=== PATIENT | male | born 1985 | race Hispanic/Latino ===

== ENCOUNTER 2018-01-20 17:38 | Emergency (ER) | payer OTHER ==
[~2018-01-20] VITALS: Ht 167.6 cm; Wt 72.6 kg
--- NOTE | 2018-01-20 18:10 | ED GI/GU/ABDOMINAL COMPLAINT ---
See Addendum History of Present Illness General Chief Complaint: Male Genitourinary Problems Stated Complaint: LUMP IN GROIN AREA Source: patient, old records Exam Limitations: no limitations Vital Signs & Intake/Output Vital Signs & Intake/Output Vital Signs Date Time Temp Pulse Resp B/P B/P Pulse O2 O2 Flow FiO2 Mean Ox Delivery Rate 01/20 2100 90 16 113/69 96 Room Air 01/20 1752 Room Air 01/20 1744 97.4 110 18 151/81 98 Room Air Allergies Coded Allergies: No Known Allergies (01/20/18) Triage Note: PT TO ER C/C "LUMP" TO RLQ X 5 DAYS, GETTING WORSE. PT STATES PENIS IS NOW SWOLLEN. DENIES URINARY DIFFICULTIES. DENIES INJURY OR TRAUMA. HAS HAD SIMILAR "LUMP" TO LLQ IN PAST Triage Nurses Notes Reviewed? yes Onset: Last week Duration: day(s):, constant, continues in ED, getting worse Timing: recent history Quality/Severity: aching, severe, throbbing Location: suprapubic Radiation: no radiation Activities at Onset: none Prior Abdominal Problems: none Sexually Active: Yes Last Time You Were Sexual: less than 2 months ago Sexual Orientation: Heterosexual Use of Protection: No Modifying Factors: Worsens With: movement, palpation. Associated Symptoms: lumps, rash HPI: 5 days prior to admission patient noted suprapubic red lump like an ingrown hair expanding in size with increasing pain tender inguinal lymph nodes and swelling to the penis with redness. He also noted a painful lesion at the ventral base of the penis. He denies fever chills nausea vomiting diarrhea abdominal pain chest pain shortness of breath dysuria bleeding penile discharge previous episodes. (Harvey López MD) Reconcile Medications Cephalexin (Keflex) 500 MG CAPSULE 1 CAP PO 4 TIMES/DAY INFECTION Sulfamethoxazole/Trimethoprim (Bactrim Ds Tablet) 800 MG-160 MG TABLET 1 TAB PO BID INFECION Valacyclovir HCl (Valtrex) 1,000 MG TABLET 1 TAB PO TID genital ulcer (Jack HARTMANN,Rajat Matthews) Past History Travel History Traveled to [place] past 21 day No Medical History Any Pertinent Medical History? none Surgical History Surgical History: non-contributory Psychosocial History What is your primary language Macedonian Tobacco Use: Current Daily Use Daily Tobacco Use Amount/Type: => 5 Cigarettes daily Family History Hx Contributory? No (Harvey López MD) Review of Systems Review of Systems Constitutional: Reports: no symptoms. EENTM: Reports: no symptoms. Respiratory: Reports: no symptoms. Cardiovascular: Reports: no symptoms. GI: Reports: no symptoms. Genitourinary: Reports: see HPI, pain. Musculoskeletal: Reports: no symptoms. Skin: Reports: see HPI, erythema, lumps, rash. Neurological/Psychological: Reports: no symptoms. Hematologic/Endocrine: Reports: no symptoms. Immunologic/Allergic: Reports: no symptoms. All Other Systems: Reviewed and Negative (Harvey López MD) Physical Exam Physical Exam General Appearance: well developed/nourished, alert, awake, anxious, moderate distress Head: atraumatic, normal appearance Eyes: Bilateral: normal appearance, PERRL, EOMI, normal inspection. Ears, Nose, Throat, Mouth: hearing grossly normal, moist mucous membrane Neck: normal inspection, supple, full range of motion, normal alignment Respiratory: normal breath sounds, chest non-tender, no respiratory distress, quiet respiration, lungs clear Cardiovascular: regular rate/rhythm, normal peripheral pulses, norml femoral pulses equa Peripheral Pulses: 4+ carotid (R), 4+ carotid (L) Gastrointestinal: normal bowel sounds, soft, non-tender, no organomegaly Male Genitals: erythema (penile with edema), inguinal tenderness, lesions ( ventral chancre tender) Back: normal inspection, normal range of motion, no vertebral tenderness Extremities: normal range of motion, no ligament instability Neurologic/Psych: no motor/sensory deficits, awake, alert, oriented x 3, normal gait, normal mood/affect, director of clinical services II-XII nml as tested Skin: intact, rash Core Measures ACS in differential dx? No Sepsis Present: No Sepsis Focused Exam Completed? No (Harvey López MD) Progress Differential Diagnosis: chancroid, syphilis, herpes genitalia, follicular abscess Plan of Care: Orders Procedure Date/time Status CHLAMYDIA-GC DNA PROBE 01/20 1754 Active VDRL 01/20 1754 Active URINALYSIS 01/20 1754 Complete COMPREHENSIVE METABOLIC PANEL 01/20 1754 Complete CBC WITHOUT DIFFERENTIAL 01/20 1754 Complete Laboratory Tests 01/20/18 1900: Urine Color YEL, Urine Clarity CLEAR, Urine pH 7.0, Ur Specific [place] 1.010, Urine Protein NEG, Urine Ketones NEG, Urine Nitrite NEG, Urine Bilirubin NEG, Urine Urobilinogen 0.2, Ur Leukocyte Esterase NEG, Ur Microscopic EXAM NOT REQUIRED, Urine Hemoglobin NEG, Urine Glucose NEG 01/20/18 1805: Anion Gap 13, Estimated GFR > 60, BUN/Creatinine Ratio 16.3, Glucose 89, Calcium 10.0, Total Bilirubin 0.5, AST 39, ALT 48, Alkaline Phosphatase 91, Total Protein 7.7, Albumin 4.6, Globulin 3.1, Albumin/Globulin Ratio 1.5, CBC w Diff MAN DIFF ORDERED, RBC 5.21, MCV 90.0, MCH 30.8, MCHC 34.2, RDW 13.5, MPV 9.0, Gran % 79.9 H, Lymphocytes % 12.0 L, Monocytes % 7.5, Eosinophils % 0.3, Basophils % 0.3, Absolute Granulocytes 13.5 H, Segmented Neutrophils 79 H, Band Neutrophils 1, Absolute Lymphocytes 2.0, Lymphocytes 13 L, Monocytes 6, Absolute Monocytes 1.3 H, Eosinophils 1, Absolute Eosinophils 0.1, Absolute Basophils 0.1, Platelet Estimate VERIFIED BY SMEAR, Normocytic RBCs VERIFIED, Normochromic RBCs VERIFIED, Fld Total RBCs Counted 100, RPR Titer/FTA Pending Microbiology 01/20 1900 URINE ROUT: GC DNA Probe - RECD 01/20 1900 URINE ROUT: Chlamydia DNA Probe (MORRIS) - RECD Diagnostic Imaging: Viewed by Me: CT Scan. Discussed w/RAD: CT Scan. Initial ED EKG: none Hand-Off Endorsed To: Rajat Santiago MD Endorsed Time: 1899 Pending: CT, labs (Maribel HARTMANN,Harvey) Diagnostic Imaging: Viewed by Me: CT Scan. Discussed w/RAD: CT Scan. Radiology Impression: PATIENT: NANCY MEHTA PRESENT AGE: 32 PATIENT ACCOUNT NO: [id number] : 87 LOCATION: [facility] ORDERING PHYSICIAN: Harvey López MD SERVICE DATE: 01/20/18 EXAM TYPE: CAT - CT ABD & PELVIS W IV CONTRAST EXAMINATION: CT ABDOMEN AND PELVIS WITH CONTRAST CLINICAL INFORMATION: Pubic abscess. COMPARISON: None TECHNIQUE: Multidetector volumetric imaging was performed of the abdomen and pelvis following IV administration of 95 mL of Optiray 320 intravenous contrast. Sagittal and coronal reformatted images were obtained on the technologist's workstation. DLP: 441.79 mGy-cm FINDINGS: LUNG BASES: Limited images of lower thorax demonstrate a 5 mm noncalcified right lower lobe pulmonary nodule as seen on axial image 2-26. LIVER, GALLBLADDER, AND BILIARY TREE: The liver is normal in size, shape, and attenuation. No focal hepatic lesion or biliary ductal dilatation is present. The gallbladder is unremarkable with no evidence of radiopaque gallstones, gallbladder wall thickening, or obvious pericholecystic inflammatory changes. PANCREAS: Unremarkable SPLEEN: Unremarkable ADRENAL GLANDS: Unremarkable KIDNEYS AND URETERS: The kidneys are normal in size, shape, and attenuation. No hydronephrosis, hydroureter, or calculi seen. No perinephric stranding. BLADDER: Unremarkable GASTROINTESTINAL TRACT: The small and large bowel are unremarkable. The appendix is visualized. The lumen of the appendix is normal in diameter and contains appendicolith. There is no CT evidence of acute appendicitis. ABDOMINAL WALL: There is soft tissue stranding in the pubis with extension to the shaft of penis. There is a 3.5 x 2.3 x 2.5 cm, (AP, CC and transverse dimensions) soft tissue density adjacent to the dorsal aspect of shaft of penis. There is no definite fluid collection or soft tissue air. This in the proper clinical setting can represent cellulitis. The soft tissue edema extends along the shaft of penis. Small bilateral hydroceles are also noted. LYMPH NODES: There are enlarged bilateral inguinal and left external iliac chain lymph nodes. Smaller left para-aortic lymph nodes are also seen. VASCULAR: Unremarkable PELVIC VISCERA: The prostate and seminal vesicles are unremarkable. OSSEOUS STRUCTURES: Unremarkable IMPRESSION: Soft tissue stranding and soft tissue density in the anterior pubis, close to the dorsal aspect of shaft of penis. The findings can represent cellulitis. No definite fluid collection or soft tissue air noted. The edematous changes extend along the shaft of penis. There are bilateral inguinal and left external iliac chain adenopathy. Smaller lymph nodes are also seen in the left para-aortic region. A 5 mm noncalcified pulmonary nodule in the right lower lobe. Followup based on Fleischner criteria is suggested. Various management parameters for solitary pulmonary nodules are in the literature. According to the Fleischner Society, recommendations for pulmonary nodules are as follows: Nodule size < or = to 4 mm in LOW RISK PATIENTS: No followup needed. Nodule size < or = to 4 mm in HIGH RISK PATIENTS: Followup CT at 12 months; if unchanged, no further followup. Nodule size > 4-6 mm in LOW RISK PATIENTS: Followup CT at 12 months; if unchanged, no further followup. Nodule size > 4-6 mm in HIGH RISK PATIENTS: Initial followup CT at 6-12 months, then at 18-24 months if no change. Nodule size > 6-8 mm in LOW RISK PATIENTS: Initial followup CT at 6-12 months, then at 18-24 months if no change. Nodule size > 6-8 mm in HIGH RISK PATIENTS: Initial followup CT at 3-6 months, then 9-12 months and 24 months if no change. Nodule size > 8 mm in LOW RISK PATIENTS: Followup CT at around 3, 9, and 24 months, dynamic contrast-enhanced CT, PET, and/or biopsy. Nodule size > 8 mm in HIGH RISK PATIENTS: Same as for low-risk patients. DICTATED BY: Senait Chavez MD DATE/TIME DICTATED:01/20/182006 MONITORING ANALYST:ZULY DATE/TIME TRANSCRIBED:01/20/182006 CONFIDENTIAL, DO NOT COPY WITHOUT APPROPRIATE AUTHORIZATION. <Electronically signed in Other Vendor System> SIGNED BY: Senait Chavez MD 01/20/182049 (Rajat Santiago MD) Departure Departure Disposition: STILL A PATIENT Condition: Stable Referrals: Patient Has No Primary Care Dr (PCP/Family) Departure Forms: Customer Survey General Discharge Information (Maribel HARTMANN,Harvey) Departure Clinical Impression Primary Impression: Chancroid in male Secondary Impressions: Cellulitis, Rash and nonspecific skin eruption Prescriptions: Current Visit Scripts Valacyclovir HCl (Valtrex) 1 TAB PO TID #21 TAB Cephalexin (Keflex) 1 CAP PO 4 TIMES/DAY #40 CAP Sulfamethoxazole/Trimethoprim (Bactrim Ds Tablet) 1 TAB PO BID #20 TAB Comments 01/20/18, 21:25... pt without abscess on ct scan... suprapubic cellulitis... also with lesion on penis... ?chancroid vs herpes.... will rx with valtrex, keflex, bactrim... pt referred to urology. (Jack HARTMANN,Rajat Matthews)
[2018-01-20 18:35] LABS: ABSOLUTE BASOPHIL COUNT 0.1 /CUMM (0.0-0.2); ABSOLUTE EOSINOPHIL COUNT 0.1 /CUMM (0.0-0.7); ABSOLUTE GRANULOCYTE CT 13.5 /CUMM (1.4-6.5); ABSOLUTE MONOCYTE COUNT 1.3 /CUMM (0.10-0.60); BASOPHIL % 0.3 % (0.0-2.0); EOSINOPHIL % 0.3 % (0-5); GRANULOCYTE % 79.9 % (42.2-75.2); HEMATOCRIT 46.9 % (42-52); MEAN CORPUSCULAR HGB 30.8 PG (27.0-31.0); MEAN CORPUSCULAR HGB CONC 34.2 G/DL (33.0-37.0); PLATELET COUNT 229 /CUMM (130-400); RBC DISTRIBUTION WIDTH 13.5 % (11.5-14.5); RED BLOOD CELL CT 5.21 /CUMM (4.70-6.10); WHITE BLOOD CELL COUNT 16.9 /CUMM (4.8-10.8)
--- NOTE | 2018-01-20 20:50 | CT SCAN REPORT ---
EXAMINATION: CT ABDOMEN AND PELVIS WITH CONTRAST CLINICAL INFORMATION: Pubic abscess. COMPARISON: None TECHNIQUE: Multidetector volumetric imaging was performed of the abdomen and pelvis following IV administration of 95 mL of Optiray 320 intravenous contrast. Sagittal and coronal reformatted images were obtained on the technologist's workstation. DLP: 441.79 mGy-cm FINDINGS: LUNG BASES: Limited images of lower thorax demonstrate a 5 mm noncalcified right lower lobe pulmonary nodule as seen on axial image 2-26. LIVER, GALLBLADDER, AND BILIARY TREE: The liver is normal in size, shape, and attenuation. No focal hepatic lesion or biliary ductal dilatation is present. The gallbladder is unremarkable with no evidence of radiopaque gallstones, gallbladder wall thickening, or obvious pericholecystic inflammatory changes. PANCREAS: Unremarkable SPLEEN: Unremarkable ADRENAL GLANDS: Unremarkable KIDNEYS AND URETERS: The kidneys are normal in size, shape, and attenuation. No hydronephrosis, hydroureter, or calculi seen. No perinephric stranding. BLADDER: Unremarkable GASTROINTESTINAL TRACT: The small and large bowel are unremarkable. The appendix is visualized. The lumen of the appendix is normal in diameter and contains appendicolith. There is no CT evidence of acute appendicitis. ABDOMINAL WALL: There is soft tissue stranding in the pubis with extension to the shaft of penis. There is a 3.5 x 2.3 x 2.5 cm, (AP, CC and transverse dimensions) soft tissue density adjacent to the dorsal aspect of shaft of penis. There is no definite fluid collection or soft tissue air. This in the proper clinical setting can represent cellulitis. The soft tissue edema extends along the shaft of penis. Small bilateral hydroceles are also noted. LYMPH NODES: There are enlarged bilateral inguinal and left external iliac chain lymph nodes. Smaller left para-aortic lymph nodes are also seen. VASCULAR: Unremarkable PELVIC VISCERA: The prostate and seminal vesicles are unremarkable. OSSEOUS STRUCTURES: Unremarkable IMPRESSION: Soft tissue stranding and soft tissue density in the anterior pubis, close to the dorsal aspect of shaft of penis. The findings can represent cellulitis. No definite fluid collection or soft tissue air noted. The edematous changes extend along the shaft of penis. There are bilateral inguinal and left external iliac chain adenopathy. Smaller lymph nodes are also seen in the left para-aortic region. A 5 mm noncalcified pulmonary nodule in the right lower lobe. Followup based on Fleischner criteria is suggested. Various management parameters for solitary pulmonary nodules are in the literature. According to the Fleischner Society, recommendations for pulmonary nodules are as follows: Nodule size < or = to 4 mm in LOW RISK PATIENTS: No followup needed. Nodule size < or = to 4 mm in HIGH RISK PATIENTS: Followup CT at 12 months; if unchanged, no further followup. Nodule size > 4-6 mm in LOW RISK PATIENTS: Followup CT at 12 months; if unchanged, no further followup. Nodule size > 4-6 mm in HIGH RISK PATIENTS: Initial followup CT at 6-12 months, then at 18-24 months if no change. Nodule size > 6-8 mm in LOW RISK PATIENTS: Initial followup CT at 6-12 months, then at 18-24 months if no change. Nodule size > 6-8 mm in HIGH RISK PATIENTS: Initial followup CT at 3-6 months, then 9-12 months and 24 months if no change. Nodule size > 8 mm in LOW RISK PATIENTS: Followup CT at around 3, 9, and 24 months, dynamic contrast-enhanced CT, PET, and/or biopsy. Nodule size > 8 mm in HIGH RISK PATIENTS: Same as for low-risk patients.
[2018-01-20] MEDS ORDERED: BACTRIM DS TAB1 EACH PO (21:26)
[2018-01-20] MEDS ORDERED: VALTREX1000 MG PO (21:26)
[2018-01-20] MEDS ORDERED: KEFLEX500 M1 PO (21:26)
[2018-01-20 21:50] VITALS: BP 136/75
== END 2018-01-20 22:08 ==
LOC: ERH 17:38
PROVIDERS: Emergency Medicine
DX: A57 Chancroid (principal); L03.311 Cellulitis of abdominal wall; R21 Rash and other nonspecific skin eruption
CPT/HCPCS: 74177; 81003; 87491; 87591; 96372; 96374; J0561; J1885